=== PATIENT | female | born 1990 | race Caucasian/White ===

== ENCOUNTER 2022-12-19 06:08 | Day surgery (SDC) | payer OTHER, SELFPAY ==
[2022-12-19] VITALS (7 sets, daily range): BP systolic 110–126; BP diastolic 67–83; PULSE 78–87; RESP 16; TEMP 36.2–37; O2SAT 91–98; BMI 35.3
--- NOTE | 2022-12-19 06:26 | PCM.HP.BLA ---
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 First diagnosed in 11/2014, had RFA (she thinks no dysplasia but RFA done due to her young age) in 02/2015 at [facility], then f/u EGD 05/2015. EGD in 2017 negative for Mendez's. Then EGD found Mendez's again in 03/2021. Previously on esomeprazole but was switched to omeprazole during recent . She is currently . Takes omeprazole 20 mg BID, works better than esomeprazole did, no heartburn or acid reflux. No dysphagia. No nausea, vomiting, early satiety, abd pain, diarrhea, constipation, melena, hematochezia. ROS Const Constitutional: No fatigue ENT ENT: No difficulty swallowing Gastro GI: No abdominal pain, belching, bloating, change in bowel habits, change in stool character, coffee ground emesis, constipation, cramping, diarrhea, heartburn, difficulty swallowing, feeling full early, excessive flatus, incontinent of stools, Vomiting blood/hematemesis, Blood in stool, loose stools, Black,tarry stools, nausea/dyspepsia, pain with swallowing, vomiting or other Musc Musculoskeletal: No joint pain Skin Skin: No yellowing of the eye or itchy eyes Psych Psychiatric: No anxiety and No depression Endo Endocrine: No fatigue Aller/Imm Allergy/Immunologic: No itchy eyes Khanh/Lymp Hematologic/Lymphatic: No easy bleeding or easy bruising Exam Const General: cooperative and comfortable Orientation: alert, awake and oriented x3 HENMT Head: normal to inspection Resp Effort & Inspection: normal respiratory effort Neuro Speech: speech normal Gait: normal gait Quality Reporting Tobacco Screening ([facility] 138) Smoking Status: Never smoker Assessment and Plan Assessment and Plan (1) GERD (gastroesophageal reflux disease): ?Status:?Chronic ?Plan: 32 yr old female with GERD, hiatal hernia, hx Mendez's diagnosed in 2014. She had RFA done due to young age at dx. We will update EGD to eval for Mendez's. f/u in office 2 wks later. Continue omeprazole 20 mg bid. Briefly discussed fundoplication. (2) Mendez esophagus: ?Status:?Chronic ?Plan: see above I have examined the patient and the H&P has been reviewed. There are no clinical changes since date of exam.
[2022-12-19 06:45] LABS: Internal QC Validated? YES +Cl - CLEAR BKGD; Pregnancy, Urine Negative Negative
[2022-12-19] MEDS: Lactated Ringers 1,000 ML 15 ML IV (06:45)
--- NOTE | 2022-12-19 07:15 | EGD_PTH ---
PATIENT: WILFRED PELAEZ LOC: EN U#:[id number] AGE/SX: 32/F ROOM: RE12/19/[address]: Dr. Cristfoer Moncada DO : 1990 BED: DIS: 12/19/2022 SPEC #: [id number] RECD: 12/19/22 10:24 STATUS: SRUTHI RENeymar #: [id number] PEBBLES: 12/19/22 07:[address]: Cristofer Moncada DEPT: SURGICAL PATHOLOGY RECD BY: Ayana Tim ENTERED: 12/19/22 11:42 SP TYPE: EGD BIOPSY OT DR: Carolyn Garcia PA-C Tissues: Esophagus, NOS Procedures: Special Stain Group II Surgery Specimen Level IV Alcian Blue/PAS (control) HEADER OPERATION: [place] [place] PRE-OP DIAGNOSIS: GERD, Mendez's esophagus TISSUE SUBMITTED: Distal esophagus biopsies MICROSCOPIC DIAGNOSIS Distal esophagus, biopsy: Fragments of gastroesophageal mucosa with moderate chronic inflammation. Intestinal metaplasia (goblet cell metaplasia) not identified. See comment. MYRNA:shira 12/20/2022 COMMENT Alcian blue/PAS stain with matched control is used in the evaluation of the specimen. MICROSCOPIC DESCRIPTION Slides are reviewed. GROSS DESCRIPTION Received in fixative is one container labeled with the patient's name and designated distal esophagus biopsy. The specimen consists of multiple irregular fragments of light liu soft tissue that in aggregate measure 1.0 x 0.8 x 0.1 cm. The specimen is totally submitted in one cassette. / MYRNA:shira 12/19/2022 TC:3 CPT: 79179, 44245
--- NOTE | 2022-12-19 07:28 | OP.CCLET_ITS ---
12/19/2022 Carolyn Garcia Re : Upper GI endoscopy procedure for Shira Garcia This procedure was performed on Monday, December 19, 2022. My impressions and recommendations are as follows: Impressions : - Z-line irregular, 38 cm from the incisors. Biopsied. - Normal stomach. - Normal second portion of the duodenum. Recommendations : - Discharge patient to home. - Resume previous diet. - Continue present medications. - Await pathology results. My findings are described in the full procedure note, which is enclosed. If I can be of further assistance, please feel free to contact me at . Sincerely, Cristofer Moncada, 12/19/2022 7:27:53 AM This report has been signed electronically.
--- NOTE | 2022-12-19 07:28 | OP.EGD_ITS ---
Patient Name: Shira Mari Procedure Date: 12/19/2022 7:09 AM Date of : 1990 Age: 32 Procedure: Upper GI endoscopy Indications: Follow-up of Mendez's esophagus Providers: Cristofer Moncada DO Referring MD: Cristofer Moncada DO Medicines: Monitored Anesthesia Care Patient Profile: This is a 32 year old female. Refer to note in patient chart for documentation of history and physical. Patient has symptoms of chronic heartburn. Complications: No immediate complications. Procedure: Pre-Anesthesia Assessment: - Prior to the procedure, a History and Physical was performed, and patient medications and allergies were reviewed. The risks and benefits of the procedure and the sedation options and risks were discussed with the patient. All questions were answered and informed consent was obtained. Patient identification and proposed procedure were verified by the physician. Mental Status Examination: normal. Respiratory Examination: clear to auscultation. Prophylactic Antibiotics: The patient does not require prophylactic antibiotics. Prior Anticoagulants: The patient has taken no previous anticoagulant or antiplatelet agents. After reviewing the risks and benefits, the patient was deemed in satisfactory condition to undergo the procedure. The anesthesia plan was to use monitored anesthesia care (MAC). Immediately prior to administration of medications, the patient was re-assessed for adequacy to receive sedatives. The heart rate, respiratory rate, oxygen saturations, blood pressure, adequacy of pulmonary ventilation, and response to care were monitored throughout the procedure. The physical status of the patient was re-assessed after the procedure. After obtaining informed consent, the endoscope was passed under direct vision. Throughout the procedure, the patient's blood pressure, pulse, and oxygen saturations were monitored continuously. The gastroscope was introduced through the mouth, and advanced to the second part of duodenum. The upper GI endoscopy was accomplished without difficulty. The patient tolerated the procedure well. Scope In: 7:19:36 AM Scope Out: 7:23:41 AM Total Procedure Duration Time 0 hours 4 minutes 5 seconds Findings: The Z-line was irregular and was found 38 cm from the incisors. Biopsies were taken with a cold forceps for histology. Verification of patient identification for the specimen was done. Estimated blood loss was minimal. The entire examined stomach was normal. The second portion of the duodenum was normal. Impression: - Z-line irregular, 38 cm from the incisors. Biopsied. - Normal stomach. - Normal second portion of the duodenum. Recommendation: - Discharge patient to home. - Resume previous diet. - Continue present medications. - Await pathology results. Procedure Code(s): --- Professional --- 94100, Esophagogastroduodenoscopy, flexible, transoral; with biopsy, single or multiple CPT copyright 2017 [employer] [employer]. All rights reserved. The codes documented in this report are preliminary and upon chip loft worker review may be revised to meet current compliance requirements. Cristofer Moncada DO 12/19/2022 7:27:53 AM This report has been signed electronically. Number of Addenda: 0 Note Initiated On: 12/19/2022 7:09 AM
== END 2022-12-19 08:03 | disposition home or self-care (01) ==
LOC: EN 06:10 → AC 06:11
PROVIDERS: Anesthesiology; PCP Family Medicine; Referring Provider Family Medicine; Visit Provider Internal Medicine Gastroenterology
PROC: 0DJ08ZZ Inspection of Upper Intestinal Tract, Via Natural or Artificial Opening Endoscopic (ICD-10-PCS; CPT 43235; principal; 2022-12-19 07:10)
DX: K21.00 Gastro-esophageal reflux disease with esophagitis, without bleeding (principal); K22.70 Barrett's esophagus without dysplasia; Z79.899 Other long term (current) drug therapy; E78.5 Hyperlipidemia, unspecified; Z87.19 Personal history of other diseases of the digestive system
CPT/HCPCS: 43239; 81025; 88305; 88313; J7120; J2405